=== PATIENT | male | born 1955 | race Two or more races ===

== ENCOUNTER 2022-09-13 18:17 | Emergency (ER) | payer MEDICARE ==
[~2022-09-13] VITALS: Ht 167.6 cm; Wt 68.0 kg
--- NOTE | 2022-09-13 18:50 | NUR ---
RECEIVED PT 67 YRS MALE C/O ABDOMINAL PAIN X1 DAY ABDOMIN SOFT JEANIE TENDER TO TOUCH
--- NOTE | 2022-09-13 19:05 | NUR ---
INSERTED ANGOCATHETER G 20 ON LT ARM BLOOD DROW AND SENT TO LAB
--- NOTE | 2022-09-13 19:15 | NUR ---
UA SENT TO LAB
--- NOTE | 2022-09-13 19:28 | NUR ---
HAND OFF JOSE A OAKES
--- NOTE | 2022-09-13 19:43 | NUR ---
pt taken to ct via [facility]
--- NOTE | 2022-09-13 19:47 | NUR ---
PT RETURNED TO ER BED [address]
[2022-09-13 20:09] LABS: ALBUMIN 3.9 g/dL (3.4-5.0); BILIRUBIN,DIRECT 0.2 mg/dL (0.0-0.2); BILIRUBIN,TOTAL 0.7 mg/dL (0.2-1.0); BILIRUBIN,URINE 1+ (NEGATIVE); CALCIUM, SERUM 8.9 mg/dL (8.5-10.1); COLOR,URINE YELLOW (YELLOW); CREATININE 1.2 mg/dL (0.6-1.3); LEUKOCYTE ESTERASE ,URINE NEGATIVE (NEGATIVE); NITRITE, URINE NEGATIVE (NEGATIVE); POTASSIUM 3.9 mmol/L (3.5-5.1); PROTEIN,URINE TRACE mg/dl (NEGATIVE); TOTAL PROTEIN, SERUM 7.6 g/dL (6.4-8.2); UGLUCOSE 2+ mg/dL (NEGATIVE); UROBILINOGEN,URINE 0.2 EU/dL (0.2)
[2022-09-13 20:26] LABS: BASOPHILS % (AUTO) 0.2 % (0.0-2.0); EOSINOPHILS % (AUTO) 0.1 % (0.0-6.0); HEMATOCRIT 43 % (39-51); HEMOGLOBIN 14.2 g/dL (13.5-17.5); LYMPHOCYTES # (AUTO) 1.7 K/uL (0.8-4.8); LYMPHOCYTES % (AUTO) 13.3 % (20.0-44.0); MEAN CORPUSCULAR HGB CONC 33 g/dl (31.0-36.0); MEAN CORPUSCULAR VOLUME 91 fL (80-96); MONOCYTES # (AUTO) 0.5 K/uL (0.1-1.30); MONOCYTES % (AUTO) 3.8 % (2.0-12.0); NEUTROPHILS # (AUTO) 10.4 K/uL (1.8-8.9); NEUTROPHILS % (AUTO) 82.6 % (43.0-81.0); PLATELET COUNT (AUTO) 183 K/uL (150-450); RED BLOOD CELL COUNT(AUTO) 4.74 MIL/uL (4.5-6.0); WHITE BLOOD COUNT (AUTO) 12.6 K/uL (4.3-11.0)
[2022-09-13] MEDS ORDERED: FAMOTIDINE/PF INJ 20 MG/2 ML VIAL IV ONE ×3 (20:27→20:30)
[2022-09-13] MEDS ORDERED: INSULIN REGULAR, HUMAN 100 UNIT/ML 10 ML VIAL SQ ONE (20:30)
[2022-09-13 20:57] LABS: BACTERIA,URINE None seen /HPF (None Seen); RBC,URINE 0-2 /HPF (0-2); SQUAMOUS EPITHELIAL CELL,UR 0-2 /HPF (None Seen); WBC,URINE 0-2 /HPF (0-3)
[2022-09-13] MEDS ORDERED: FAMO40TA7 PO (21:09)
[2022-09-13] MEDS ORDERED: NAPR-1164 PO (21:09)
[2022-09-13 21:55] VITALS: BP 145/75
--- NOTE | 2022-09-13 21:55 | NUR ---
IV CANNULA REMOVED
== END 2022-09-13 21:56 | disposition home or self-care (01) ==
LOC: ER 18:25
DX: K52.9 Noninfective gastroenteritis and colitis, unspecified (principal); Z79.899 Other long term (current) drug therapy
CPT/HCPCS: 99285; 74176; 96374; 93005; 85025; 80048; 83690; 80076; 81001; 36415; 84484; J3490